=== PATIENT | female | born 1975 | race Caucasian/White ===

== ENCOUNTER → 2022-03-30 | Outpatient (CLI) | payer BC ==
[~2022-03-30] MED LIST: AUGMENTIN 875-875 MG PO; BENZONATATE100 M1 PO; BUSPAR15 MG PO; CARAFATE1 GM/10 ML PO; CELEXA20 MG PO; CIPRO500 MG PO; COLESTIPOL HYDRO1 GM PO; FLAGYL250 MG PO; FLEXERIL10 MG PO; GAVILAX17 GM/Dose PO; HYDROCO/APAP TAB 7.5; MEDROL DOSEPAK4 MG PO; NEXIUM40 MG PO; NORCO 325 MG-51 TAB PO; PRILOSEC20 M1 PO; PRILOSEC20 MG PO; VITAMIN D-32000 UNIT PO
[2022-03-30 12:02] LABS: BASO # 0.1 10*3/uL (0.0-0.1); BASO % 1.6 % (0.0-1.0); BILIRUBIN Negative (Negative); BLOOD Trace-Lysed (Negative); CLARITY Clear (Clear); COLOR Yellow (Yellow); EOS # 0.1 10*3/uL (0.0-0.4); EOS % 2.6 % (1.0-4.0); GLUCOSE Negative (Negative); HEMATOCRIT 42.9 % (37.0-47.0); KETONE Negative (Negative); LEUKO ESTERASE Negative (Negative); LYMPH # 1.6 10*3/uL (1.3-4.4); MEAN CELL VOLUME 92.1 fl (81.0-99.0); MEAN CORPUSCULAR HGB 30.9 pg (27.0-31.0); MEAN CORPUSCULAR HGB CONC 33.6 g/dl (33.0-37.0); MEAN PLATELET VOLUME 10.1 fl (9.6-12.3); MONO # 0.4 10*3/uL (0.1-1.0); MONO % 6.6 % (3.0-9.0); NEUT # 3.3 10*3/uL (2.3-7.9); NITRITE Negative (Negative); PLATELET COUNT AUTOMATED 327 10*3/uL (130-400); RED BLOOD COUNT 4.66 10*6/uL (4.10-5.10); RED CELL DISTRI WIDTH 12.4 % (0-14.5); SPECIFIC GRAVITY <= 1.005 (1.001-1.030); UROBILINOGEN 0.2 E.U./dl (0.0-1.0); WHITE BLOOD COUNT 5.5 10*3/uL (4.8-10.8)
[2022-03-30 12:18] LABS: WBC 0-2 wbc/hpf (0-5)
[2022-03-30 12:21] LABS: ALKALINE PHOSPHATASE 105 U/L (45-117); BUN 10 mg/dl (7-24); CHLORIDE 112 mmol/L (98-107); CHOLESTEROL 211 mg/dL (<200); CREATININE 0.56 mg/dL (0.55-1.02); IRON 154 ug/dL (50-170); LDL CHOLESTEROL 138 mg/dL (9-159); SGOT/AST 15 IU/L (3-35); SGPT/ALT 24 U/L (12-78); SODIUM 137 mmol/L (136-145); THYROXINE (T4) TOTAL 9.6 ug/dl (4.8-13.9); TOTAL PROTEIN 7.1 gm/dL (6.4-8.2); TRIGLYCERIDES 135 mg/dl (<150)
[2022-03-31 04:06] LABS: RHEUMATOID FACTOR <10.0 IU/mL (<14.0)
[2022-03-31 04:06] LABS: TOTAL PROTEIN, SERUM 6.7 g/dL (6.0-8.5)
[2022-03-31 07:06] LABS: HBSAG Negative (Negative); HEP B CORE AB, IGM Negative (Negative); HEPATITIS C ANTIBODY <0.1 (0.0-0.9)
[2022-03-31 15:07] LABS: A/G RATIO 1.2 (0.7-1.7); ALBUMIN 3.7 g/dL (2.9-4.4); ALPHA-1-GLOBULIN 0.2 g/dL (0.0-0.4); ALPHA-2-GLOBULIN 0.7 g/dL (0.4-1.0); BETA GLOBULIN 1.2 g/dL (0.7-1.3); GAMMA GLOBULIN 0.9 g/dL (0.4-1.8); M-SPIKE Not Observed g/dL (Not Observed)
[2022-04-01 00:06] LABS: CCP ANTIBODIES IGG/IGA 7 units (0-19)
[2022-04-01 18:07] LABS: TB1 Ag VALUE 0.01 IU/mL (.)
[2022-04-04 16:07] LABS: HLA-B27 ANTIGEN Negative (.)
[2022-04-14 16:07] LABS: IGG P18 AB Absent (.); IGG P23 AB Absent (.); IGG P28 AB Absent (.); IGG P30 AB Absent (.); IGG P39 AB Absent (.); IGG P41 AB Absent (.); IGG P45 AB Absent (.); IGG P58 AB Absent (.); IGG P63 AB Absent (.); IGG P66 AB Absent (.); IGM P23 AB Absent (.); IGM P39 AB Absent (.); IGM P41 AB Absent (.); LYME IGG WB INTERPRETATION Negative (.); LYME IGM WB INTERPRETATION Negative (.)
== END | disposition home or self-care (01) ==
LOC: LAB 11:10
PROVIDERS: ATTEND Family Medicine
DX: Z00.00 Encounter for general adult medical examination without abnormal findings (principal); Z13.1 Encounter for screening for diabetes mellitus; M79.7 Fibromyalgia; M25.50 Pain in unspecified joint; Z13.6 Encounter for screening for cardiovascular disorders; R39.89 Other symptoms and signs involving the genitourinary system; R31.21 Asymptomatic microscopic hematuria; E61.1 Iron deficiency